=== PATIENT | male | born 1980 | race African-American/Black ===

== ENCOUNTER 2022-03-02 01:29 | Emergency (ER) | payer OTHER ==
[~2022-03-02] VITALS: Ht 185.4 cm; Wt 79.5 kg
[2022-03-02] MEDS ORDERED: ONDANSETRON HCL 4 MG/2 ML VIAL IVP ONE (02:00)
[2022-03-02] MEDS ORDERED: MORPHINE SULFATE 2 MG/ML SYRINGE IVP ONE (02:00)
[2022-03-02] MEDS ORDERED: SODIUM CHLORIDE 0.9% 1,000 ML IV ONE (02:00)
[2022-03-02 02:07] LABS: EOSINOPHILS % (AUTO) 8.3 % (1.0-6.0); HEMATOCRIT 35.7 % (41-53); HEMOGLOBIN 11.7 g/dL (13.5-17.5); LYMPHOCYTES # (AUTO) 2.6 K/uL (1.0-4.8); LYMPHOCYTES % (AUTO) 39.9 % (22.0-44.0); MEAN CORPUSCULAR HGB CONC 32.9 G/dL (31.0-37.0); MEAN CORPUSCULAR VOLUME 91 fL (80-100); MONOCYTES # (AUTO) 0.7 K/uL (0.1-1.0); MONOCYTES % (AUTO) 11.3 % (2.0-9.0); NEUTROPHILS # (AUTO) 2.6 K/uL (1.8-7.7); NEUTROPHILS % (AUTO) 39.5 % (40.0-70.0); PLATELET COUNT (AUTO) 279 K/uL (150-450); RED BLOOD CELL COUNT(AUTO) 3.91 MIL/uL (4.50-5.90); RED CELL DISTRIBUTION WIDTH 12.9 % (11.5-14.5)
[2022-03-02 02:17] LABS: ANION GAP 3 mmol/L (8-16); CALCIUM, TOTAL 9.2 mg/dL (8.8-10.5); CARBON DIOXIDE 35 mmol/L (22-29); CHLORIDE 105 mmol/L (98-107); CREATININE 1.09 mg/dL (0.60-1.30); GLOMERULAR FILTR. RATE CALC > 60 mL/min (>60); GLUCOSE,RANDOM 84 mg/dL (70-110); POTASSIUM 4.1 mmol/L (3.5-5.1); SODIUM SERUM 143 mmol/L (136-145); UREA NITROGEN, BLOOD 9 mg/dL (7-18)
[2022-03-02 02:25] LABS: ALANINE AMINOTRANSFERASE 23 U/L (12-78); ALBUMIN 3.5 g/dL (3.4-5.0); ALKALINE PHOSPHATASE 57 U/L (46-116); ASPARTATE AMINOTRANSFERASE 24 U/L (15-37); BILIRUBIN,TOTAL 0.2 mg/dL (0.1-1.0); LIPASE 64 U/L (73-393)
[2022-03-02] MEDS ORDERED: SODIUM CHLORIDE 0.9% 100 ML ONE (03:51)
[2022-03-02] MEDS ORDERED: IOHEXOL 350 MG/ML 100 ML VIAL ONE (03:51)
[2022-03-02 04:00] VITALS: BP 129/62
== END 2022-03-02 08:33 | disposition left against medical advice (07) ==
LOC: EMS 01:32
DX: R10.32 Left lower quadrant pain (principal); F17.210 Nicotine dependence, cigarettes, uncomplicated; D75.A Glucose-6-phosphate dehydrogenase (G6PD) deficiency without anemia; D57.3 Sickle-cell trait; Z90.49 Acquired absence of other specified parts of digestive tract; Z98.890 Other specified postprocedural states; Z88.2 Allergy status to sulfonamides
CPT/HCPCS: 99285; 74176; 96374; 96361; 96375; 80053; 83690; 84484; 85025; 36415; 93005; J2270; J2405; Q9967; J7030; J7050

== ENCOUNTER 2023-06-09 19:45 | Emergency (ER) | payer OTHER ==
[~2023-06-09] VITALS: Ht 185.4 cm; Wt 81.8 kg
[2023-06-09 19:50] VITALS: BP 132/67; PULSE 91; RESP 16; TEMP 98.7
== END 2023-06-09 21:08 | disposition left against medical advice (07) ==
LOC: EMS 19:45
DX: R30.0 Dysuria (principal); N50.89 Other specified disorders of the male genital organs; Z90.49 Acquired absence of other specified parts of digestive tract; Z88.2 Allergy status to sulfonamides; Z53.29 Procedure and treatment not carried out because of patient's decision for other reasons
CPT/HCPCS: 99281; Z7502